=== PATIENT | female | born 1965 | race Caucasian/White ===

== ENCOUNTER 2016-12-03 13:34 | Emergency (ER) | payer OTHER ==
[~2016-12-03] VITALS: Ht 154.9 cm; Wt 81.6 kg
[2016-12-03 13:38] VITALS: BP_SYST 139
--- NOTE | 2016-12-03 13:40 | NUR ---
Patient to ER bed 7 to gown for evaluation. Side rails up. Report given to Alia BOWMAN.
--- NOTE | 2016-12-03 13:41 | NUR ---
Note harijose ramon in EDM - 12/03/16 at 1426 by [email or web address] Pt brought by partner, A&Ox4, pt c/o SOB and generalized redness after taking prednisone, VS WNL, , cap refill <3,ambulatory, speaking in full sentences.
--- NOTE | 2016-12-03 13:41 | NUR ---
Pt brought by partner, A&Ox4, pt c/o SOB and generalized redness after taking prednisone, VS WNL, , cap refill <3,ambulatory, speaking in full sentences.
--- NOTE | 2016-12-03 13:42 | NUR ---
ER at bedside examining patient.
[2016-12-03] MEDS ORDERED: DIPHENHYDRAMINE INJ 50 MG/ML VIAL IM ONE (13:45)
[2016-12-03] MEDS ORDERED: EPINEPHrine 1 MG/ML AMP IM ONE (13:45)
[2016-12-03] MEDS ORDERED: LIP20 PO (14:01)
[2016-12-03] MEDS ORDERED: VALS80TA2 PO (14:01)
[2016-12-03] MEDS ORDERED: ALBMDI INH (14:02)
[2016-12-03] MEDS ORDERED: ASPI-1077 PO (14:07)
--- NOTE | 2016-12-03 14:29 | NUR ---
Pt resting at this time, VS WNL.
[2016-12-03] MEDS ORDERED: LORazepam 1 MG TABLET PO ONE (14:45)
[2016-12-03] MEDS ORDERED: IPRATROPIUM/ALBUTEROL SULFATE 3 ML AMPUL.NEB INH ONE (14:45)
[2016-12-03] MEDS ORDERED: IPRATROPIUM BROM 0.5 MG/2.5 ML VIAL.NEB (ATROVENT) INH ONE (14:51)
[2016-12-03] MEDS ORDERED: IPRATROPIUM/ALBUTEROL SULFATE 3 ML AMPUL.NEB ONE (14:52)
--- NOTE | 2016-12-03 15:10 | NUR ---
Report received from GRACIE Rojo. VSS, patient resting comfortably. No acute distress noted. Will continue to monitor.
[2016-12-03 15:33] VITALS: BP_SYST 136
--- NOTE | 2016-12-03 15:33 | NUR ---
Patient given written and verbal discharge instructions and verbalizes understanding. ER MD discussed with patient the results and treatment provided. Patient in stable condition. ID arm band removed. No rx given. Patient educated on pain management and to follow up with PMD in 2-3 days. Pain Scale 0/10 Opportunity for questions provided and answered.
== END 2016-12-03 15:33 | disposition home or self-care (01) ==
LOC: SED 13:34
DX: T78.3XXA Angioneurotic edema, initial encounter (principal); T38.0X5A Adverse effect of glucocorticoids and synthetic analogues, initial encounter; E78.5 Hyperlipidemia, unspecified; I10 Essential (primary) hypertension; Z90.710 Acquired absence of both cervix and uterus; Z88.0 Allergy status to penicillin; Z88.1 Allergy status to other antibiotic agents; Z88.2 Allergy status to sulfonamides; Z91.041 Radiographic dye allergy status; Z88.8 Allergy status to other drugs, medicaments and biological substances; Y92.89 Other specified places as the place of occurrence of the external cause
CPT/HCPCS: 94640; 96372; 99284; J0171; J1200

== ENCOUNTER 2017-06-10 12:06 | Emergency (ER) | payer OTHER ==
[~2017-06-10] VITALS: Ht 152.4 cm; Wt 83.9 kg
[~2017-06-10 12:06] MED LIST: ALBMDI INH; ASPI-1077 PO; LIP20 PO; VALS80TA2 PO
[2017-06-10 12:15] VITALS: BP_SYST 122
[2017-06-10] MEDS ORDERED: IBUPROFEN 800 MG TABLET PO ONE (14:30)
[2017-06-10] MEDS ORDERED: HYDROcodone/ACETAMIN 5-325 MG TAB (NORCO/ VICODIN) PO ONE (14:30)
[2017-06-10 14:49] VITALS: BP_SYST 122
== END 2017-06-10 14:49 | disposition home or self-care (01) ==
LOC: SED 12:06
DX: S93.602A Unspecified sprain of left foot, initial encounter (principal); S70.02XA Contusion of left hip, initial encounter; S70.01XA Contusion of right hip, initial encounter; I10 Essential (primary) hypertension; E78.5 Hyperlipidemia, unspecified; Z90.710 Acquired absence of both cervix and uterus; Z88.1 Allergy status to other antibiotic agents; Z91.041 Radiographic dye allergy status; Z88.2 Allergy status to sulfonamides; Z88.0 Allergy status to penicillin; Z88.8 Allergy status to other drugs, medicaments and biological substances; W10.9XXA Fall (on) (from) unspecified stairs and steps, initial encounter; Y93.01 Activity, walking, marching and hiking; Y92.89 Other specified places as the place of occurrence of the external cause; Y99.8 Other external cause status
CPT/HCPCS: 73521; 99284

== ENCOUNTER 2017-08-02 06:30 | Day surgery (SDC) | payer OTHER ==
[~2017-08-02] VITALS: Ht 154.9 cm; Wt 89.8 kg
[2017-08-02] MEDS ORDERED: CIPROFLOXACIN LACT 400 MG/D5W 200 ML IV ONE (07:30)
[2017-08-02] MEDS ORDERED: ONDANSETRON HCL 4 MG/2 ML VIAL IVP PRN (09:15)
[2017-08-02] MEDS ORDERED: fentaNYL CITRATE/PF 100 MCG/2 ML AMP IVP PRN ×2 (09:15)
[2017-08-02] MEDS ORDERED: ONDANSETRON HCL 4 MG/2 ML VIAL ONE (11:25)
[2017-08-02 11:57] VITALS: BP_SYST 149
[2017-08-02] MEDS ORDERED: DIPHENHYDRAMINE INJ 50 MG/ML VIAL ONE (12:52)
[2017-08-02] MEDS ORDERED: DIPHENHYDRAMINE INJ 50 MG/ML VIAL IVP ONE (13:00)
== END 2017-08-02 17:30 | disposition home or self-care (01) ==
LOC: SMU 06:30 → SDS 06:30
PROVIDERS: ATTEND Otolaryngology
DX: J34.2 Deviated nasal septum (principal); J32.9 Chronic sinusitis, unspecified; J34.89 Other specified disorders of nose and nasal sinuses; J33.9 Nasal polyp, unspecified; K21.9 Gastro-esophageal reflux disease without esophagitis; D64.9 Anemia, unspecified; D38.5 Neoplasm of uncertain behavior of other respiratory organs; G47.33 Obstructive sleep apnea (adult) (pediatric); Z88.8 Allergy status to other drugs, medicaments and biological substances; I10 Essential (primary) hypertension; G35 Multiple sclerosis
CPT/HCPCS: 30140; 30520; 31240; 31255; 31267; 31297; 88305; 88311; C1726; J0744; J1200; J2405

== ENCOUNTER 2018-08-28 12:03 | Emergency (ER) | payer OTHER ==
[~2018-08-28] VITALS: Ht 154.9 cm; Wt 92.1 kg
[2018-08-28 12:14] VITALS: BP_SYST 159
--- NOTE | 2018-08-28 12:15 | NUR ---
Patient to ER bed 08 to gown for evaluation. Side rails up.
--- NOTE | 2018-08-28 12:30 | NUR ---
Patient AAOx4, came to ER by self c/o allergic reaction after drinking coffee from gas station. Patient states she ate banana nut bread and then bought coffee from a gas station. Patient states "It felt like my throat was closing." Patient c/o SOB, itchy hands, and swollen fingers. Patient in no acute distress at this time. MD aware. Skin pink/warm/dry.
--- NOTE | 2018-08-28 12:34 | NUR ---
ER Dr. Luciano at bedside examining patient.
[2018-08-28] MEDS ORDERED: ALBUTEROL SULFATE 0.083% 2.5 MG/3 ML VIAL.NEB INH ONE ×2 (12:35→13:15)
[2018-08-28] MEDS ORDERED: IPRATROPIUM BROM 0.5 MG/2.5 ML VIAL.NEB (ATROVENT) INH ONE ×2 (12:35→13:15)
[2018-08-28] MEDS ORDERED: DIPHENHYDRAMINE INJ 50 MG/ML VIAL IVP ONE (13:45)
[2018-08-28] MEDS ORDERED: NACL 0.9% 1,000 ML IV ONE (14:00)
[2018-08-28 14:12] LABS: ANION GAP 12 (5-15); CALCIUM 10.3 mg/dL (8.4-11.0); CHLORIDE 106 mmol/L (98-107); CREATININE 0.69 mg/dL (0.55-1.30); GLUCOSE 86 mg/dL (70-99); POTASSIUM 4.2 mmol/L (3.5-5.1); SODIUM SERUM 143 mmol/L (136-145); UREA NITROGEN, BLOOD 15 mg/dL (8-21)
[2018-08-28 14:22] LABS: ALANINE AMINOTRANSFERASE 114 U/L (12-78); ALBUMIN 3.9 g/dL (3.4-4.8); ASPARTATE AMINOTRANSFERASE 49 U/L (10-37); FREE T4 (FREE THYROXINE) 0.9 ng/dl (0.8-1.5); TOTAL BILIRUBIN 1.3 mg/dL (0.0-1.0)
[2018-08-28 14:23] LABS: ALCOHOL, BLOOD < 3 mg/dL (<10); BASOPHILS # (AUTO) 0.1 K/uL (0.0-0.2); BASOPHILS % (AUTO) 0.7 % (0.0-2.0); EOSINOPHILS # (AUTO) 0.2 K/uL (0.0-0.4); EOSINOPHILS % (AUTO) 2.2 % (0.0-4.0); GFR AFRICAN AMERICAN 114 mL/min (>90); HEMATOCRIT 40.4 % (36-48); HEMOGLOBIN 13.8 g/dL (12.0-16.0); LYMPHOCYTES # (AUTO) 2.1 K/uL (1.0-5.5); MEAN CORPUSCULAR HEMOGLOBIN 30 pg (27-31); MEAN CORPUSCULAR HGB CONC 34 % (32-36); MEAN CORPUSCULAR VOLUME 88 fL (79.0-98.0); MONOCYTES # (AUTO) 0.7 K/uL (0.0-1.0); MONOCYTES % (AUTO) 7.5 % (1.7-9.3); NEUTROPHILS % (AUTO) 66.6 % (40.0-70.0); PLATELET COUNT (AUTO) 217 K/uL (130-430); RED BLOOD CELL COUNT(AUTO) 4.59 MIL/uL (4.2-6.2); RED CELL DISTRIBUTION WIDTH 14.4 % (9.0-15.0); WHITE BLOOD COUNT (AUTO) 9.1 K/uL (4.8-10.8)
[2018-08-28 14:29] LABS: INR 0.9 (0.8-1.2); PROTHROMBIN TIME 9.7 SECS (9.5-12.5)
[2018-08-28 15:30] LABS: ERYTHROCYTE SEDIMENTATION RATE 10 MM/HR (0-20)
[2018-08-28 15:30] LABS: BILIRUBIN,URINE NEGATIVE (NEGATIVE); BLOOD, URINE TRACE (NEGATIVE); CLARITY/URINE CLEAR (CLEAR); COLOR,URINE YELLOW (YELLOW); GLUCOSE,URINE NEGATIVE (NEGATIVE); KETONES,URINE NEGATIVE (NEGATIVE); LEUKOCYTE ESTERASE ,URINE NEGATIVE (NEGATIVE); NITRITE, URINE NEGATIVE (NEGATIVE); PROTEIN URINE NEGATIVE (NEGATIVE); UROBILINOGEN,URINE 0.2 (0.2-1.0)
[2018-08-28 15:49] LABS: BARBITURATE, URINE NEGATIVE (NEG <=200); BENZODIAZEPINE, URINE NEGATIVE (NEG <=150); CANNABINOID, URINE NEGATIVE (NEG <=50); COCAINE, URINE NEGATIVE (NEG <=150); METHAMPHETAMINES SCREEN,URINE NEGATIVE (NEG <=500); OPIATE, URINE NEGATIVE (NEG <=100); PHENCYCLIDINE SCREEN,URINE NEGATIVE (NEG <=25); UR TRICYCLIC ANTIDEPRESSANTS NEGATIVE (NEG <=300); URINE AMPHETAMINE NEGATIVE (NEG <=500); URINE METHADONE NEGATIVE (NEG <=200); URINE OXYCODONE SCREEN NEGATIVE (NEG <=100); URINE PROPOXYPHENE SCREEN NEGATIVE (NEG <=300)
[2018-08-28 15:55] VITALS: BP_SYST 137
[2018-08-28 15:55] LABS: BACTERIA,URINE RARE /HPF (None Seen); RBC,URINE 0-3 /HPF (0-3); WBC,URINE 0-3 /HPF (0-3)
--- NOTE | 2018-08-28 15:55 | NUR ---
Patient given written and verbal discharge instructions and verbalizes understanding. ER discussed with patient the results and treatment provided. Patient in stable condition. ID arm band removed. IV catheter removed intact and dressing applied, no active bleeding. No Rx given. Patient educated on pain management and to follow up with PMD. Pain Scale 0/10. Opportunity for questions provided and answered. Medication side effect fact sheet provided.
== END 2018-08-28 15:55 | disposition home or self-care (01) ==
LOC: SED 12:03
DX: T78.40XA Allergy, unspecified, initial encounter (principal); E78.5 Hyperlipidemia, unspecified; I10 Essential (primary) hypertension; J45.909 Unspecified asthma, uncomplicated; Z88.1 Allergy status to other antibiotic agents; Z88.0 Allergy status to penicillin; Z88.2 Allergy status to sulfonamides; Z91.041 Radiographic dye allergy status; Z88.8 Allergy status to other drugs, medicaments and biological substances; Z79.899 Other long term (current) drug therapy; X58.XXXA Exposure to other specified factors, initial encounter
CPT/HCPCS: 36415; 36600; 71045; 80053; 80307; 81000; 82140; 83605; 84439; 84484; 85025; 85610; 85651; 87040; 93005; 96374; 99284; G0482; J1200; J7030; J7613